=== PATIENT | male | born 1955 | race Caucasian/White ===

== ENCOUNTER 2016-12-01 17:18 | Emergency (ER) | payer OTHER ==
[2016-12-01 17:23] VITALS: BP 129/70
[2016-12-01 17:55] LABS: Hematocrit 32 % (42-52); Hemoglobin 10.6 g/dl (14.0-18.0); Mean Corpuscular HGB Conc 33 g/dl (31-36); Mean Corpuscular Hemoglobin 30 pg (27-31); Mean Corpuscular Volume 90 fL (80-94); Mean Platelet Volume 8 um3 (7.4-10.4); Red Blood Count 3.55 10^6/ul (4.0-5.4); Red Cell Distribution Width 15 % (10.5-15); White Blood Count 9.8 10^3/ul (3.5-10.8)
[2016-12-01 18:12] LABS: ALT 13 U/L (7-52); AST 23 U/L (13-39); Alkaline Phosphatase 89 U/L (34-104); Anion Gap 16 mmol/L (2-11); BUN/Creatinine Ratio 13.8 (8-20); Blood Urea Nitrogen 33 mg/dL (6-24); CO2 Carbon Dioxide 15 mmol/L (22-32); Calcium 9.1 mg/dL (8.6-10.3); Chloride 99 mmol/L (101-111); EGFR African American 35.5 (>60); EGFR Non-African American 27.6 (>60); Globulin 2.7 g/dL (2-4); Glucose 78 mg/dL (70-100); Potassium 2.8 mmol/L (3.5-5.0); Sodium 130 mmol/L (133-145); Total Protein 6.7 g/dL (6.4-8.9)
[2016-12-01 18:30] LABS: Acetaminophen < 15 mcg/mL; Alcohol 149 mg/dL (<10); Salicylate < 2.50 mg/dL (<30)
[2016-12-01 18:42] LABS: TSH (Thyroid Stimulating Horm) 0.37 mcIU/mL (0.34-5.60)
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
== END 2016-12-01 19:05 | disposition home or self-care (01) ==
LOC: ED 17:18
DX: F10.129 Alcohol abuse with intoxication, unspecified (principal); N28.9 Disorder of kidney and ureter, unspecified; Y90.6 Blood alcohol level of 120-199 mg/100 ml
CPT/HCPCS: 36415; 80053; 80320; 80329; 84443; 85025; 99284; G0480

== ENCOUNTER 2017-10-16 23:21 | Emergency (ER) | payer OTHER ==
[2017-10-17 00:44] LABS: Urine Appearance Clear; Urine Blood Negative (Negative); Urine Color Yellow; Urine Ketones Negative (Negative); Urine Protein Negative (Negative); Urine Specific Gravity 1.005 (1.010-1.030); Urine Urobilinogen Negative (Negative)
[2017-10-17 00:48] LABS: ABS Basophils 0.1 10^3/ul (0-0.2); ABS Eosinophils 0.2 10^3/ul (0-0.6); ABS Lymphocytes 2.3 10^3/ul (1.0-4.8); ABS Monocytes 1.2 10^3/ul (0-0.8); ABS Neutrophils 10.1 10^3/ul (1.5-7.7); ABS Nucleated RBC 0 10^3/ul; Eosinophil % 1.7 % (0-6); Hematocrit 36 % (42-52); Hemoglobin 12.1 g/dl (14.0-18.0); Lymphocyte % 16.7 % (25-47); Mean Corpuscular HGB Conc 33 g/dl (31-36); Mean Corpuscular Hemoglobin 29 pg (27-31); Mean Corpuscular Volume 87 fL (80-94); Mean Platelet Volume 8 um3 (7.4-10.4); Nucleated Red Blood Cells % 0.1; Platelet Count 359 10^3/ul (150-450); Red Blood Count 4.18 10^6/ul (4.0-5.4); Red Cell Distribution Width 16 % (10.5-15); White Blood Count 13.9 10^3/ul (3.5-10.8)
[2017-10-17 01:03] LABS: EGFR Non-African American 42.6 (>60)
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
[2017-10-17 06:24] VITALS: BP 150/69
== END 2017-10-17 06:22 | disposition home or self-care (01) ==
LOC: ED 23:21
DX: S61.412A Laceration without foreign body of left hand, initial encounter (principal); F10.10 Alcohol abuse, uncomplicated; F17.210 Nicotine dependence, cigarettes, uncomplicated; X58.XXXA Exposure to other specified factors, initial encounter; Y92.9 Unspecified place or not applicable; Z86.79 Personal history of other diseases of the circulatory system
CPT/HCPCS: 36415; 80053; 80307; 80320; 80329; 81003; 84443; 85025; 99285; G0480

== ENCOUNTER 2019-03-12 16:18 | Inpatient (IN) | payer OTHER ==
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
[2019-03-12 16:51] LABS: ABS Basophils 0.1 10^3/ul (0-0.2); ABS Eosinophils 0.2 10^3/ul (0-0.6); ABS Lymphocytes 1.1 10^3/ul (1.0-4.8); ABS Monocytes 0.6 10^3/ul (0-0.8); ABS Neutrophils 10.4 10^3/ul (1.5-7.7); Eosinophil % 1.6 %; Hematocrit 15 % (42-52); Hemoglobin 4.9 g/dL (14.0-18.0); Lymphocyte % 8.8 %; Mean Corpuscular HGB Conc 32 g/dL (31-36); Mean Corpuscular Hemoglobin 28 pg (27-31); Mean Corpuscular Volume 86 fL (80-94); Mean Platelet Volume 7.8 fL (7.4-10.4); Platelet Count 258 10^3/uL (150-450); Red Blood Count 1.79 10^6 /uL (4.18-5.48); Red Cell Distribution Width 17 % (10-15); White Blood Count 12.2 10^3/uL (3.5-10.8)
[2019-03-12 16:58] LABS: Activated Partial Thrombo Time 31.2 seconds (26.0-38.0); INR 1.05 (0.82-1.09)
[2019-03-12 17:06] LABS: Albumin 2.8 g/dL (3.2-5.2); Albumin/Globulin Ratio 1.6 (1-3); BUN/Creatinine Ratio 19.5 (8-20); Calcium 7.4 mg/dL (8.6-10.3); EGFR African American 25.7 (>60); EGFR Non-African American 21.3 (>60); Globulin 1.8 g/dL (2-4); Total Bilirubin 0.2 mg/dL (0.2-1.0); Total Protein 4.6 g/dL (6.4-8.9)
[2019-03-12 17:08] LABS: Potassium 5.1 mmol/L (3.5-5.0)
[2019-03-12] MEDS ORDERED: Albuterol/Ipratropium NEB.SOL* Albuterol 2.5 MG/Ipratropium 0.5 MG 3 ML INH PRN (18:10)
[2019-03-12] MEDS ORDERED: Pantoprazole* 80 mg IN NS 80 MG/250 ML BAG IV ONE (19:00)
[2019-03-12] MEDS: NS 0.9% 1000 ML** 1,000 ML IV SCH (20:00)
[2019-03-12 20:49] LABS: Hematocrit 20 % (42-52); Hemoglobin 6.6 g/dL (14.0-18.0); Mean Corpuscular HGB Conc 33 g/dL (31-36); Mean Corpuscular Hemoglobin 29 pg (27-31); Mean Corpuscular Volume 88 fL (80-94); Mean Platelet Volume 7.6 fL (7.4-10.4); Platelet Count 230 10^3/uL (150-450); Red Blood Count 2.29 10^6 /uL (4.18-5.48); Red Cell Distribution Width 16 % (10-15); White Blood Count 10.1 10^3/uL (3.5-10.8)
--- NOTE | 2019-03-12 20:50 | HP ---
CC: Dr. Rivera; Tamara Alston NP; [facility] * HISTORY AND PHYSICAL: DATE OF ADMISSION: 03/12/19 PRIMARY CARE PROVIDERS: Tamara Alston NP as well as [facility] in [place], [place]. CHIEF COMPLAINT: Bright red blood per rectum. HISTORY OF PRESENT ILLNESS: This is a 64-year-old male with past medical history of gastric ulcer, unknown duration, GERD, who presents to the emergency room because of bright red blood per rectum. The patient reports that he has been having issues with anemia and bleeding for which he underwent at the [facility] last week a colonoscopy and an EGD. According to the , there was no reason identified for the anemia and the GI bleeding and they were planning on doing a capsule endoscopy. The patient now comes to the emergency room because of bright red blood per rectum that started at 3 a.m. this morning. There is no heartburn, no abdominal pain. There is no nausea, no vomiting. The patient is having lethargy and is unable to answer all my questions. is at bedside, who reports that the patient on 02/04/19 also underwent a stent placement for peripheral vascular disease for which he was started on aspirin for. PAST MEDICAL HISTORY: 1. Hypertension. 2. Hyperlipidemia. 3. COPD. 4. Bronchitis. 5. GERD. 6. Anxiety/depression. 7. Anemia. 8. Low back pain. 9. Carpal tunnel syndrome, for which he underwent surgery, reports that it has healed poorly on the right side. 10. Lung nodules. 11. Radiculopathy. 12. History of bilateral ptosis status post superficial brow lift, revised to blepharoplasty in October 2013. PAST SURGICAL HISTORY: Includes: 1. Peripheral vascular disease status post stent placement in February 2019. 2. Rhinoplasty. 3. Left thumb surgery. 4. Right carpal tunnel surgery. 5. Left foot surgery secondary to crush injury. 6. Right cataract surgery. 7. Vocal cord polyp excision. 8. Bilateral superficial brow lift surgery in August 2013. 9. Bilateral blepharoplasty. MEDICATIONS: Home medications include: 1. Nicotine lozenge, 1 lozenge as needed. 2. Flexeril 10 mg 4 times a day as needed. 3. Albuterol inhaler 2 puffs every 4 hours as needed. 4. Norvasc 5 mg daily. 5. Spiriva 1 cap inhale daily. 6. Paxil 40 mg daily. 7. Pantoprazole 40 mg daily. 8. Claritin 10 mg daily. 9. Folic acid 1 mg daily. 10. Budesonide 1 puff inhale twice daily. 11. Lipitor 80 mg daily. 12. Aspirin 81 mg daily. SOCIAL HISTORY: The patient lives at home with his . The patient is disabled. The patient does have history of smoking. states that he only drinks a few beers a day. FAMILY HISTORY: Mother at age 74 due to CVA. He did not know who his biological father was. REVIEW OF SYSTEMS: A full review of systems cannot be obtained as the patient is having altered mental status and lethargy and not answering all my questions. PHYSICAL EXAMINATION GENERAL: This is a lethargic male, pale appearing, lying in the ER stretcher, in no acute distress. VITAL SIGNS: Blood pressure is 99/44, respiratory rate of 17, heart rate of 73 , oxygenation 98% on room air, temperature of 97. HEENT: Left pupil is larger than the right pupil. They are reactive to light. There is no nystagmus. Oral mucosa is dry. LUNGS: There is mild expiratory wheezing. No tachypnea, no use of accessory muscles. HEART: Regular rate, rhythm, no murmurs. ABDOMEN: Bowel sounds are normoactive in all 4 quadrants. Abdomen is soft, nontender, nondistended. EXTREMITIES: There is no lower extremity edema, no calf tenderness. At the bilateral groin site, there is dressing intact with mild sanguineous discharge. DIAGNOSTIC STUDIES/LAB DATA: Labs, white blood cell count of 12.2, hemoglobin 4.9, hematocrit 15, platelets 258. INR of 1.05. PTT of 31.2. Sodium of 140, potassium of 5.1, chloride 112, bicarb of 20, BUN 58, creatinine of 2.98, glucose of 116. AST 11, ALT 3. IMPRESSION AND PLAN: 1. Acute blood loss anemia secondary to gastrointestinal bleeding: The patient is having bright red blood per rectum. At this point, it is difficult to decide if this is upper or lower gastrointestinal bleed. The patient's reported a recent GI study including colonoscopy and EGD that were normal. We will start the patient on pantoprazole drip followed by pantoprazole 40 mg IV b.i.d. Start the patient on IV fluids, 2 units of packed RBC has been ordered. I have consulted Dr. Rivera, GI physician who will come and evaluate the patient as well. 2. Acute kidney injury: The patient appears dehydrated, start IV fluids. 3. Hyperkalemia. We will give IV fluids, recheck the potassium. 4. History of chronic obstructive pulmonary disease: Continue home tiotropium , budesonide. Start DuoNeb as needed. 5. History of peripheral vascular disease. Continue Lipitor. Hold the patient 's aspirin as the patient is having GI bleeding. 6. History of hypertension: Hold the patient's amlodipine as the blood pressure is running soft. 7. The patient's healthcare proxy is Paula, . The patient is full code. Obtain records from [facility], patient and family are poor historian. [id number]/CPS #: [id number] MTDD
[2019-03-12] MEDS ORDERED: Atorvastatin* 80 MG TAB PO ONE (21:00)
[2019-03-12 21:02] LABS: BUN/Creatinine Ratio 20.3 (8-20); Calcium 7.3 mg/dL (8.6-10.3); EGFR African American 26.5 (>60); EGFR Non-African American 21.9 (>60); Potassium 4.9 mmol/L (3.5-5.0)
[2019-03-12 22:58] LABS: Hematocrit 22 % (42-52); Hemoglobin 7.6 g/dL (14.0-18.0); Mean Corpuscular HGB Conc 34 g/dL (31-36); Mean Corpuscular Hemoglobin 30 pg (27-31); Mean Corpuscular Volume 86 fL (80-94); Mean Platelet Volume 8.2 fL (7.4-10.4); Platelet Count 221 10^3/uL (150-450); Red Blood Count 2.55 10^6 /uL (4.18-5.48); Red Cell Distribution Width 16 % (10-15); White Blood Count 8.8 10^3/uL (3.5-10.8)
[2019-03-13] MEDS ORDERED: Cyclobenzaprine TAB* 10 MG PO PRN (01:00)
[2019-03-13] MEDS: Gabapentin CAP(*) 300 MG PO SCH ×3 (01:55→21:07)
[2019-03-13] MEDS: NS 0.9% 1000 ML** 1,000 ML IV SCH ×3 (02:49→17:53)
[2019-03-13 03:16] LABS: Hematocrit 22 % (42-52); Hemoglobin 7.6 g/dL (14.0-18.0); Mean Corpuscular HGB Conc 34 g/dL (31-36); Mean Corpuscular Hemoglobin 29 pg (27-31); Mean Corpuscular Volume 87 fL (80-94); Mean Platelet Volume 7.6 fL (7.4-10.4); Platelet Count 219 10^3/uL (150-450); Red Blood Count 2.58 10^6 /uL (4.18-5.48); Red Cell Distribution Width 16 % (10-15); White Blood Count 7.3 10^3/uL (3.5-10.8)
[2019-03-13] MEDS: Mometasone/Formoter 100/5 MDI INH SCH ×4 (03:41→19:10)
[2019-03-13 06:19] LABS: Hematocrit 20 % (42-52); Mean Corpuscular HGB Conc 34 g/dL (31-36); Mean Corpuscular Hemoglobin 30 pg (27-31); Mean Corpuscular Volume 87 fL (80-94); Mean Platelet Volume 7.8 fL (7.4-10.4); Platelet Count 202 10^3/uL (150-450); Red Blood Count 2.35 10^6 /uL (4.18-5.48); Red Cell Distribution Width 15 % (10-15); White Blood Count 5.8 10^3/uL (3.5-10.8)
[2019-03-13 06:27] LABS: BUN/Creatinine Ratio 19.3 (8-20); Calcium 7.4 mg/dL (8.6-10.3); EGFR African American 30.3 (>60); Potassium 3.9 mmol/L (3.5-5.0)
--- NOTE | 2019-03-13 08:07 | PN ---
Subjective Date of Service: 03/13/19 Interval History: Admitted yesterday for bright red blood per rectum transfused 2 units PRBC. Overnight had four bloody BM. No abdominal pain, no nausea, no vomiting. Objective Active Medications: Albuterol/Ipratropium (Duoneb (Albuterol 2.5 Mg/Ipratropium 0.5 Mg)) 1 neb INH Q4H PRN PRN Reason: SOB/WHEEZING Atorvastatin Calcium (Lipitor*) 80 mg PO BEDTIME [facility] Cyclobenzaprine HCl (Flexeril Tab*) 10 mg PO QID PRN PRN Reason: MUSCLE SPASMS Device (Tiotropium Inhaler Device*) 1 each INH 0900 ONE Stop: 03/13/19 09:01 Folic Acid (Folvite Tab*) 1 mg PO DAILY [facility] Gabapentin (Neurontin Cap(*)) 300 mg PO BID [facility] Last Admin: 03/13/19 01:55 Dose: 300 mg Sodium Chloride (Ns 0.9% 1000 Ml) 1,000 mls @ 125 mls/hr IV PER RATE [facility] Last Admin: 03/13/19 02:49 Dose: 125 mls/hr Mometasone Furoate/Formoterol Fumar (Dulera 100/5 Mdi*) 2 puff INH BID [facility] Last Admin: 03/13/19 03:41 Dose: Not Given Pantoprazole Sodium (Protonix Iv*) 40 mg IV BID [facility] Tiotropium Magnolia (Spiriva Cap.Inh*) 1 cap INH DAILY [facility] Vital Signs - 8 hr 03/13/19 03/13/19 03/13/19 00:15 00:30 00:45 Temperature Pulse Rate 84 83 87 Respiratory 19 19 21 Rate Blood Pressure 116/65 114/61 117/65 (mmHg) O2 Sat by Pulse 96 96 96 Oximetry 03/13/19 03/13/19 03/13/19 01:00 01:30 02:00 Temperature Pulse Rate 86 88 86 Respiratory 18 16 16 Rate Blood Pressure 114/64 128/82 131/69 (mmHg) O2 Sat by Pulse 96 99 97 Oximetry 03/13/19 03/13/19 03/13/19 02:30 03:00 03:02 Temperature Pulse Rate 83 81 Respiratory 20 19 19 Rate Blood Pressure 125/54 129/64 (mmHg) O2 Sat by Pulse 97 94 Oximetry 0803/13/19 03/13/19 03:30 03:31 04:00 Temperature 98.1 F Pulse Rate 85 82 Respiratory 18 19 Rate Blood Pressure 129/56 106/57 (mmHg) O2 Sat by Pulse 94 94 Oximetry 03/13/19 03/13/19 03/13/19 04:30 05:00 05:01 Temperature Pulse Rate 80 78 78 Respiratory 20 20 20 Rate Blood Pressure 133/58 111/53 (mmHg) O2 Sat by Pulse 95 96 96 Oximetry 03/13/19 03/13/19 03/13/19 05:30 06:00 06:01 Temperature Pulse Rate 80 78 80 Respiratory 18 20 28 Rate Blood Pressure 134/61 127/65 (mmHg) O2 Sat by Pulse 97 94 95 Oximetry 03/13/19 03/13/19 03/13/19 06:30 07:00 07:30 Temperature 99.4 F Pulse Rate 82 77 Respiratory 22 17 Rate Blood Pressure 149/73 124/53 (mmHg) O2 Sat by Pulse 93 93 Oximetry Oxygen Devices in Use Now: None Appearance: Lying in bed, Not in distress Eyes: - - Pupils unequal. L > R Respiratory: Symmetrical Chest Expansion and Respiratory Effort, Clear to Auscultation Cardiovascular: RRR, No Edema Abdominal: - - Normoactive bowel sounds, soft, nontender, non distended. Extremities: No Edema Neurological: Alert and Oriented x 3 Result Diagrams: 03/13/19 05:58 03/13/19 05:58 Microbiology and Other Data: Microbiology 03/12/19 20:49 Transfusion Reaction Gram Stain - Final Blood Bag 03/12/19 20:20 Nasal Screen MRSA (PCR) - Final Nasal Mrsa Not Detected Assess/Plan/Problems-Billing Assessment: - Patient Problems (1) Acute blood loss anemia Current Visit: Yes Status: Acute Code(s): D62 - ACUTE POSTHEMORRHAGIC ANEMIA SNOMED Code(s): 282908198 Comment: due to GI bleeding. S/p 2 units PRBC (2) GI bleed Current Visit: Yes Status: Acute Code(s): K92.2 - GASTROINTESTINAL HEMORRHAGE, UNSPECIFIED SNOMED Code(s): 94295366 Comment: 2 units PRBC given per patient had recent c-scope and EGD: working on obtaining records, [place] [facility] Continue PPI NPO GI consult pending. (3) PVD (peripheral vascular disease) Current Visit: Yes Status: Acute Code(s): I73.9 - PERIPHERAL VASCULAR DISEASE, UNSPECIFIED SNOMED Code(s): 651397078 Comment: per patient February 04, 2019 had stent, at this point hold aspirin due to acute GI bleeding requiring transfusion continue lipitor (4) TEODORA (acute kidney injury) Current Visit: Yes Status: Acute Code(s): N17.9 - ACUTE KIDNEY FAILURE, UNSPECIFIED SNOMED Code(s): 91809139 Comment: improved, but still having TEODORA. continue IV hydration. (5) COPD (chronic obstructive pulmonary disease) Current Visit: Yes Status: Acute Code(s): J44.9 - CHRONIC OBSTRUCTIVE PULMONARY DISEASE, UNSPECIFIED SNOMED Code(s): 38657394 Comment: continue home regimen (6) Hyperkalemia Current Visit: Yes Status: Acute Code(s): E87.5 - HYPERKALEMIA SNOMED Code (s): 37623314 Comment: resolved.
[2019-03-13] MEDS: Pantoprazole IV* 40 MG IV SCH ×2 (08:36→21:07)
[2019-03-13] MEDS ORDERED: Spiriva HANDIHALER DEVICE (NF) 1 EACH DEVICE INH ONE (09:00)
[2019-03-13] MEDS ORDERED: Folic Acid TAB* 1 MG PO SCH (09:00)
[2019-03-13 10:03] LABS: Hematocrit 21 % (42-52); Hemoglobin 6.9 g/dL (14.0-18.0); Mean Corpuscular HGB Conc 33 g/dL (31-36); Mean Corpuscular Hemoglobin 29 pg (27-31); Mean Corpuscular Volume 86 fL (80-94); Mean Platelet Volume 7.8 fL (7.4-10.4); Platelet Count 215 10^3/uL (150-450); Red Cell Distribution Width 15 % (10-15); White Blood Count 5.4 10^3/uL (3.5-10.8)
[2019-03-13] MEDS: Tiotropium CAPSULE (NF) 1 CAP/18 MCG CAP.INH INH SCH (14:56)
[2019-03-13] MEDS ORDERED: Nicotine PATCH 14 MG/24 HR* PATCH TRANSDERM SCH (15:00)
[2019-03-13 15:34] LABS: Hematocrit 25 % (42-52); Hemoglobin 8.4 g/dL (14.0-18.0); Mean Corpuscular HGB Conc 34 g/dL (31-36); Mean Corpuscular Hemoglobin 29 pg (27-31); Mean Corpuscular Volume 86 fL (80-94); Platelet Count 222 10^3/uL (150-450); Red Blood Count 2.91 10^6 /uL (4.18-5.48); Red Cell Distribution Width 16 % (10-15); White Blood Count 6.2 10^3/uL (3.5-10.8)
[2019-03-13] MEDS ORDERED: Midazolam* 1 MG/ML 10 ML VIAL (10 MG) ONE (15:54)
[2019-03-13] MEDS ORDERED: fentaNYL* 50 MCG/ML 2 ML VIAL (100 MCG VIAL) ONE (15:54)
[2019-03-13] MEDS ORDERED: Dextran 70/Hypromellose Tears Eye Drops 15 ml BTL (for Artificials Tears) BOTH EYES PRN (15:59)
[2019-03-13] MEDS ORDERED: PEG 3000 GI LAVAGE* 1 GALLON PO ONE (17:04)
--- NOTE | 2019-03-13 17:04 | PN ---
Hospitalist Progress Note Date of Service: 03/13/[address] Acevedo, post EGD, no identifiable cause based on EGD. She plans for c-scope, request golytely and clear liquid diet, NPO after midnight
--- NOTE | 2019-03-13 17:28 | CONS ---
GASTROENTEROLOGY CONSULT REPORT: DATE OF CONSULT: 03/13/19 REQUESTING PROVIDER: Dr. Garner. REASON FOR CONSULT: Rectal bleeding and anemia. HISTORY OF PRESENT ILLNESS: Mr. Cerrato is a 64-year-old gentleman with a history of peripheral vascular disease status post femoral-femoral bypass, right iliac angioplasty and stent placement on 02/04/19; COPD, and hypertension , who is admitted with rectal bleeding. Mr. Cerrato receives [facility] care through [facility] [place]. He underwent fem-fem bypass with right iliac angioplasty and stent placement on 02/04/19. It seems that he was started on Plavix after this time. He presented to the [facility] on 03/05/19 with weakness, lightheadedness, and dyspnea with exertion. His hemoglobin was 5.7. There was report of black colored stool per the discharge summary from the [facility], although the patient denies having seen bloody stool before. He received 4 units of blood in total. He underwent an EGD, which was unremarkable. He underwent a colonoscopy on 03/07/19. Discharge summary mentions that there were sessile polyps and hyperplastic polyps. Some of these polyps were apparently removed, although there was a plan to repeat colonoscopy in 1 year to remove additional polyps. No mention was made of size or technique for polyp removal. The patient and his family today states there were at least 3 large polyps, which were removed during colonoscopy. The patient was planned for an inpatient capsule endoscopy, although he did not receive the appropriate prep. He then did not want to stay in the hospital and was discharged with plan for outpatient capsule. He was discharged on 03/11/19 on Plavix. His hemoglobin at time of discharge was 9.3. He started having bright red blood per rectum at approximately 3 a.m. on Monday morning. He had multiple episodes. He reports that he had a syncopal episode, although he is not sure how long he lost consciousness. He then was brought by ambulance for evaluation. On arrival to the ER, the patient's blood pressure was 99/44. He had a hemoglobin of 4.9 with a hematocrit of 15. He was noted on exam to have red bloody stool He had several bloody bowel movements as well in the ICU. He was given 2 units of blood. Followup hemoglobin was 7. He was then given an additional unit with a followup hemoglobin of 8.4. He has remained hemodynamically stable without any recurrent episodes of bleeding this morning. He denies any GI symptoms. No nausea, vomiting, dysphagia, abdominal pain, constipation or diarrhea. He has never seen red blood per rectum before. He was not aware that he was on Plavix, although he thinks he was also on aspirin. PAST MEDICAL HISTORY: 1. Hypertension. 2. Hyperlipidemia. 3. COPD. 4. Peripheral vascular disease. 5. GERD. 6. Anxiety and depression. 7. Carpal tunnel syndrome. 8. Low back pain. 9. History of bilateral ptosis. PAST SURGICAL HISTORY: 1. Peripheral vascular bypass with stent placement and angioplasty in February 2019. 2. Rhinoplasty. 3. Thumb surgery. 4. Carpal tunnel surgery. 5. Superficial brow lift and blepharoplasty in 2013. 6. Vocal cord polyp excision. 7. Right cataract surgery. MEDICATIONS: Home medications per the H and P include: 1. Flexeril 10 mg q.i.d. as needed. 2. Albuterol inhaler as needed. 3. Norvasc 5 mg daily. 4. Spiriva daily. 5. Paxil 40 mg daily. 6. Protonix 40 mg daily. 7. Claritin 10 mg daily. 8. Folic acid 1 mg daily. 9. Lipitor 80 mg daily. 10. Aspirin 81 mg daily. 11. Plavix daily FAMILY HISTORY: No known GI or liver disease. SOCIAL HISTORY: The patient lives at home. He is disabled. History of smoking. Drinks a few beers per day. REVIEW OF SYSTEMS: Review of systems is negative except as mentioned above. PHYSICAL EXAM: Vital Signs: Temperature 97.7, heart rate 70s, blood pressure 150s to 160s/ 70s. General: Chronically ill-appearing gentleman. No acute distress. Family at bedside. HEENT: Mildly dry mucous membranes. Lungs: No significant wheezing. Breathing fairly comfortably. Cardiovascular: Regular rate and rhythm. Abdomen: Soft, nontender, nondistended. Positive bowel sounds. Extremities: No significant lower extremity edema. DIAGNOSTIC STUDIES/LAB DATA: Labs reviewed. White count 6.2, hemoglobin 8.4 with a hematocrit of 25. This is after 3 units of blood. BUN 50, creatinine 2.59 Imaging: No abdominal imaging. Endoscopy: No complete endoscopy report. EGD and colonoscopy briefly summarized on the discharge H and P from the [facility]. IMPRESSION AND RECOMMENDATIONS: Mr. Cerrato is a 64-year-old gentleman with a history of peripheral arterial disease on Plavix, hypertension, hyperlipidemia, chronic obstructive pulmonary disease, and recent admission for anemia of unclear etiology, who presents with rectal bleeding and significant anemia. Mr. Cerrato was recently hospitalized at [facility] for symptomatic anemia. There is some question of melena, although the patient denies any significant rectal bleeding. EGD and colonoscopy were negative for source of bleeding. The patient appears to have some polyps removed during the inpatient colonoscopy, although details are not available at the time of this note. The patient was discharged on Plavix with plan for outpatient video capsule endoscopy. After discharge, he developed multiple episodes of hematochezia, which is a new symptom for him. He had an episode of syncope. Profoundly anemic with a hemoglobin of 4.9. He does not appear to have ongoing bleeding at this time. Differential includes small bowel bleeding source as recent EGD and colonoscopy were negative. A post-polypectomy bleed in the setting of Plavix is also reasonable to consider. - Continue to monitor CBC - Will plan for a quick upper endoscopy to ensure that there is no source of brisk bleeding given the syncopal episode. - If EGD is unrevealing, then I will plan for colonoscopy prep with a colonoscopy tomorrow to ensure that there is no postpolypectomy bleed or other colonic source that can be identified. - If this workup is unrevealing for bleeding source, then the patient will likely need to have an inpatient video capsule endoscopy. Thank you very much for this consult. [id number]/[facility] #: [id number] ELIJAH
[2019-03-13] MEDS ORDERED: Nicotine Patch Removal NOTE PATCH OFF SCH (21:00)
[2019-03-13] MEDS ORDERED: Isosorbide Dinitrate TAB* 20 MG PO SCH (21:00)
[2019-03-13] MEDS ORDERED: Atorvastatin* 80 MG TAB PO SCH (21:00)
--- NOTE | 2019-03-13 22:28 | PRO ---
DATE OF PROCEDURE: 03/13/19 - ROOM #ICU-07 PROCEDURE: EGD with biopsy. REQUESTING PROVIDER: Dr. Garner. INDICATION: The patient presents with hematochezia and acute blood loss anemia. Recently hospitalized for a week at [facility]. At the time, there was possible melena and profound anemia requiring transfusions. He underwent an EGD and colonoscopy. Formal reports are not available at time of this procedure, although it does not appear that anything was found on the EGD. No source of bleeding found on the colonoscopy, although it appeared there were several polyps removed. The patient's reports that these polyps were large. The patient was discharged home on Plavix and aspirin. Was home for a day and then woke up and had multiple episodes of significant hematochezia. He had not previously had hematochezia, so this was a new symptom. Hemoglobin was less than 5 on arrival. He had received several blood transfusions. No recurrent bleeding overnight. MEDICATIONS GIVEN: 1. Midazolam 4 mg IV. 2. Fentanyl 25 mcg IV. DESCRIPTION OF PROCEDURE: Full disclosure of risks was reviewed with the patient as detailed on the consent form. The patient was placed in the left lateral decubitus position and monitored with continuous pulse oximetry, capnography, interval blood pressure monitoring, and direct observation. A bite block was placed between the patient's teeth. An adult gastroscope was then inserted into the patient mouth and advanced down the esophagus, into the stomach, and into the distal duodenum. Findings and interventions are described below. FINDINGS: Esophagus was a normal tubular structure without rings or strictures. Scope was advanced through a normal-appearing GE junction into the stomach. Stomach was examined in the forward and retroflexed views. There were a few tiny erythematous spots in the stomach as well as some friable mucosa diffusely. No fresh or old blood. No erosions or ulcers. No AVMs. Scope was then advanced into the duodenum. With the assistance of epigastric pressure by nursing, I was able to advance into proximal jejunum. At the distal most portion of the exam, I encountered a serpiginous ulcer, which was shallow and clean-based. This ulcer was likely a centimeter in length, although it was fairly narrow. The scope was unable to advance past this point to evaluate for additional findings. Biopsies were obtained from the ulcer. Scope was then withdrawn back into the duodenum. No fresh or old blood. There was woods bile seen. No AVMs. Scope was then withdrawn from the patient. The patient tolerated the procedure well and was recovered in the GI recovery area. IMPRESSION: 1. Upper endoscopy to proximal jejunum. 2. Clean-based shallow ulcer in the proximal jejunum. Unclear etiology. Biopsies obtained. I have a low suspicion that this ulcer alone was the source of the patient's significant bleed. Possible that there are additional similar ulcers further down in his small bowel, which may be collectively contributing to anemia and bleeding. The patient is on aspirin, but denies any other significant NSAID use. FOLLOWUP: 1. Await pathology. 2. I would plan for a colonoscopy tomorrow. The patient reportedly had several large colon polyps removed while at the OR several days ago. It is possible that the patient had a postpolypectomy bleed in the setting of restarting aspirin and Plavix. If colonoscopy is negative, then we would tentatively plan for an inpatient capsule study. 3. Continue to hold Plavix if this is acceptable from a vascular standpoint. Aspirin is okay to continue. Thank you very much for this consult. GI will continue to follow. [id number]/[facility] #: [id number] ELIJAH
[2019-03-14] MEDS: NS 0.9% 1000 ML** 1,000 ML IV SCH (03:38)
[2019-03-14 04:14] LABS: ABS Basophils 0.1 10^3/ul (0-0.2); ABS Eosinophils 0.6 10^3/ul (0-0.6); ABS Lymphocytes 1.6 10^3/ul (1.0-4.8); ABS Monocytes 0.6 10^3/ul (0-0.8); ABS Neutrophils 4.3 10^3/ul (1.5-7.7); Eosinophil % 8.8 %; Hematocrit 23 % (42-52); Hemoglobin 7.7 g/dL (14.0-18.0); Mean Corpuscular HGB Conc 33 g/dL (31-36); Mean Corpuscular Hemoglobin 29 pg (27-31); Mean Corpuscular Volume 86 fL (80-94); Mean Platelet Volume 7.6 fL (7.4-10.4); Nucleated Red Blood Cells % 0.1; Platelet Count 219 10^3/uL (150-450); Red Blood Count 2.69 10^6 /uL (4.18-5.48); Red Cell Distribution Width 16 % (10-15); White Blood Count 7.1 10^3/uL (3.5-10.8)
[2019-03-14 04:29] LABS: BUN/Creatinine Ratio 17.5 (8-20); Calcium 7.9 mg/dL (8.6-10.3); EGFR African American 39.4 (>60); EGFR Non-African American 32.6 (>60); Potassium 3.7 mmol/L (3.5-5.0)
[2019-03-14] MEDS: Mometasone/Formoter 100/5 MDI INH SCH (07:09)
[2019-03-14] MEDS: Tiotropium CAPSULE (NF) 1 CAP/18 MCG CAP.INH INH SCH (07:09)
[2019-03-14 08:51] VITALS: BP 154/80
[2019-03-14] MEDS ORDERED: Cyanocobalamin TAB* 500 MCG PO SCH (09:00)
[2019-03-14] MEDS ORDERED: PARoxetine HCL TAB* 40 MG PO SCH (09:00)
--- NOTE | 2019-03-14 11:25 | DS ---
CC: Tamara Alston NP; Dr. Rivera; Dr. Chiu* DISCHARGE SUMMARY: DATE OF ADMISSION: 03/12/19 DATE OF DISCHARGE AGAINST MEDICAL ADVICE: 03/14/19 DISCHARGE DIAGNOSIS: Acute gastrointestinal bleed, likely lower. DISPOSITION AT DISCHARGE: The patient is planning to go home after his against medical advice discharge. CONDITION AT DISCHARGE: Guarded. Please note that patient although hemodynamically stable, he is not ready for discharge and he requested to be discharged against medical advice. HOSPITAL COURSE: Luis Cerrato is a 64-year-old male with history of peripheral vascular disease, who presented to the hospital on 03/12/19 complaining of GI bleed. The patient was overall transfused 3 units of packed red blood cells, but his hemoglobin is still slowly trending down. He had an upper endoscopy on 03/13/19 which showed clean based, shallow jejunal ulcer but no clear cut source of bleeding. The patient was being prepped for colonoscopy today. He drank half gallon of his GoLYTELY and his bowel movements are still brown. He has scant blood in his bowel movements currently. Patient is upset about the prep and upset about the need to stay in the hospital. Apparently, he had an upper endoscopy and colonoscopy done at the [facility] just within the past couple weeks and "they found nothing" as per patient. Patient also stated that he was scheduled to have a capsule endoscopy and "camera" was send over to his home. He plans are to go to his home start the capsule endoscopy procedure at home. He stated that his bowel movements have been brown and he has not been bleeding in the most recent bowel movement that he had. He denies any abdominal pain. He is seen in the room with his sister, who is upset about the patient signing against medical advice but apparently he had done it in the past at the [facility] and his sister is aware of "how stubborn he is." The patient is alert and oriented and understands the implications of signing against medical advice when having acute GI hemorrhage. The risks of acute GI hemorrhage and hemorrhaging to were explained to the patient and the patient is aware of that. He is planning to come back to the hospital if the hemorrhage recurs. He is planning to have a capsule endoscopy to start when he is back home. His sister would like to drive him home. It was explained the risks of leaving against medical advice and the documentation was signed. He is capable of making decisions. He is calm and cooperative. He is just upset about being in the hospital and having so many procedures and he wishes to go home. A lengthy conversation with him and his sister was carried on in the room and the patient is going leave against medical advice today. For further details of patient's hospitalization, please see daily progress notes. TIME SPENT: Approximately 35 minutes was spent on patient's discharge. [id number]/[facility]PS #: [id number] ELIJAH
[2019-03-15] MEDS ORDERED: Ferrous Sulfate TAB* 325 MG PO SCH (09:00)
== END 2019-03-14 10:30 | disposition left against medical advice (07) | DRG 254 ==
LOC: ED 16:18 → ICU 18:08
PROVIDERS: ADMIT Internal Medicine; ATTEND Internal Medicine
PROC: 30233N1 Transfusion of Nonautologous Red Blood Cells into Peripheral Vein, Percutaneous Approach (ICD-10-PCS; 2019-03-12)
PROC: 0DBA8ZX Excision of Jejunum, Via Natural or Artificial Opening Endoscopic, Diagnostic (ICD-10-PCS; principal; 2019-03-13)
DX: K92.1 Melena (principal); D62 Acute posthemorrhagic anemia; N17.9 Acute kidney failure, unspecified; I10 Essential (primary) hypertension; J44.9 Chronic obstructive pulmonary disease, unspecified; E78.00 Pure hypercholesterolemia, unspecified; H26.9 Unspecified cataract; Z96.1 Presence of intraocular lens; F17.210 Nicotine dependence, cigarettes, uncomplicated; E78.5 Hyperlipidemia, unspecified; K21.9 Gastro-esophageal reflux disease without esophagitis; F41.9 Anxiety disorder, unspecified; F32.9 Major depressive disorder, single episode, unspecified; I73.9 Peripheral vascular disease, unspecified; E87.5 Hyperkalemia; M54.10 Radiculopathy, site unspecified; Z98.41 Cataract extraction status, right eye; Z82.49 Family history of ischemic heart disease and other diseases of the circulatory system; Z72.89 Other problems related to lifestyle; Z95.828 Presence of other vascular implants and grafts; Z87.19 Personal history of other diseases of the digestive system
CPT/HCPCS: 36415; 70450; 80048; 80053; 85025; 85027; 85610; 85730; 86078; 86850; 86900; 86901; 86922; 87641; 88305; 93005; 94640; 99156; 99285; A9270-GY; J2250; J3010; P9040